=== PATIENT | male | born 1950 ===

== ENCOUNTER 2023-01-14 08:15 | Inpatient (IN) | payer OTHER ==
[~2023-01-14] VITALS: Ht 180.3 cm; Wt 68.0 kg
[2023-01-14] MEDS ORDERED: COZAAR25 MG PO (09:15)
[2023-01-14] MEDS ORDERED: NORVASC5 MG PO (09:16)
[2023-01-20] MEDS ORDERED: INTESTINEX680 M1 PO (12:43)
[2023-01-20] MEDS ORDERED: TRAM1TAB98 PO (12:43)
[2023-01-20] MEDS ORDERED: PEPCID AC20 MG PO (12:43)
== END 2023-01-20 13:45 | disposition home or self-care (01) | DRG 331 ==
LOC: ADM 08:15 → O/R 01-17 07:35 → EDSTATUS 01-17 08:15 → CIR.AMB 01-17 08:15 → SURH 01-17 08:15
PROVIDERS: ADMIT Surgery; ATTEND Surgery
PROC: 07BB4ZZ Excision of Mesenteric Lymphatic, Percutaneous Endoscopic Approach (ICD-10-PCS; 2023-01-17)
PROC: 3E0F7SF Introduction of Other Gas into Respiratory Tract, Via Natural or Artificial Opening (ICD-10-PCS; 2023-01-17)
PROC: 0DTF4ZZ Resection of Right Large Intestine, Percutaneous Endoscopic Approach (ICD-10-PCS; principal; 2023-01-17 12:00)
DX: D12.0 Benign neoplasm of cecum (principal); R59.0 Localized enlarged lymph nodes; R19.4 Change in bowel habit; R93.2 Abnormal findings on diagnostic imaging of liver and biliary tract; K57.30 Diverticulosis of large intestine without perforation or abscess without bleeding; I11.9 Hypertensive heart disease without heart failure